=== PATIENT | female | born 1980 ===

== ENCOUNTER 2020-09-15 08:00 | Outpatient (RCR) | payer BC, SELFPAY ==
--- NOTE | 2020-06-30 12:17 | PTOPEVAL ---
INITIAL PHYSICAL THERAPY EVALUATION and PLAN OF CARE Thank you for referring Fiona Cohen to [facility].? Fiona is scheduled to be seen for physical therapy? 2x/week for 4 weeks. Please review, sign, date and return this plan of care DIEGO. I agree with and certify that the following plan of care is medically necessary. Referring Physician Date Admitting Provider: Attending Provider: Livan Alejo, Referring Provider: *PT Outpatient Evaluation Start: 06/30/20 10:30 Freq: Status: Active Protocol: Document 06/30/20 10:30 SAVANA (Rec: 06/30/20 12:17 SAVANA [id number]) Therapy Assessment Status Assessment Status Assessment Status Evaluation Outpatient Past Medical History Past Medical History Source of Past Medical History Patient Respiratory History Hx Asthma Yes Gastrointestinal History Hx Gastroesophageal Reflux Disease Yes Hx Ulcer Yes Musculoskeletal History Hx Orthopedic Surgery Yes: L ankle ORIF 2002 Reproductive History Hx Other Reproductive Disorders Yes: polyp removed from uterus Evaluation Information Problem Diagnosis upper back pain Onset initiated last summer Subjective Information Last year gardening - L side Query Text:As Reported By Patient/ mid/lower back pain - since Family then had issues with L side - pelvis R shoulder blade - constant pain - increase in discomfort with cervical rotation to R Seeing chiropractor, getting massages - unable to relieve discomfort Has done rest, exercise - etc no consistent relief - does get some relief with electric stimulation Prolonged positioning - aggravates pain Sleeps - 3/4 prone - general sleeps okay - mornings - initially okay - but after 5 minutes will begin to feel the discomfort Does have cervical pillow and moist heat - does for relaxation - also has massager Constant headaches - did just receive new glasses -no change with headaches Prior Level of Function Activity Level (Last 3 Months) Occupation homemaker Hand Dominance Right Medications Home Meds (Include: OTC, RX, Vitamins, phentermine, pantoprazole sod, Herbal
--- NOTE | 2020-07-30 08:05 | PCPTNOTE ---
Patient called & cancelled scheduled appointment this date due to not having child life assistant.
--- NOTE | 2020-08-09 16:51 | PTOPEVAL ---
PHYSICAL THERAPY RE-EVALUATION AND UPDATED PLAN OF CARE Thank you for referring Fiona Cohen to [facility].?Fiona has been seen x 7 visits. She has made progress towards goals set - but has not fully met them. Recommending continuation of PT 2x/week for 4 weeks. Please review, sign, date and return this plan of care DIEGO. I agree with and certify that the following plan of care is medically necessary. Referring Physician Date Admitting Provider: Attending Provider: Livan Alejo, MD Referring Provider: Therapy Assessment Status Assessment Status Assessment Status Re-evaluation Hx Other Reproductive Disorders Yes: polyp removed from uterus Evaluation Information Problem Diagnosis R upper back pain, L lower back pain Subjective Information Fiona reports having increase Query Text:As Reported By Patient/ with L lateral thigh soreness Family after last treatment. Iced/ heat/stretched the areas - doing better today. Headaches - doing better ~ 80% - also started wearing mouth guard. R upper quadrant - soreness present - discomfort at end range R rotation, feels like able to hold shoulders back better. Tightness still present. L lower back - better - if gardening, bending over a lot - the discomfort/soreness is present during the activity and afterwards. But with usual resting - doesn't feel it as much. Pain Assessment Timing of Pain Assessment Timing of Pain Assessment Assessment Self Report Pain Assessment Left Lower Back Reported Pain Level 3 Pain Description Dull,Tightness Lowest Pain Intensity 2 Greatest Pain Intensity 7 Right Upper Back Reported Pain Level 6 Pain Description Sharp,Throbbing,Tightness Lowest Pain Intensity 4 Greatest Pain Intensity 8 Cervical and Lumbar ROM Cervical ROM Cervical Flexion (0-60) 55 Query Text:Active in Degrees Cervical Extension (0-70) 55 Query Text:Active in Degrees Cervical Lateral Flexion Right (0-50) 45 Query Text:Active in Degrees Cervical Lateral Flexion Left (0-50) 45 Query Text:Active in Degrees Cervical Rotation Right (0-90) 60 Query Text:Active in Degrees Cervical Rotation Left (0-90) 70 Query Text:Active in Degrees Cervical ROM Comments tenderness
--- NOTE | 2020-09-22 08:01 | PCPTNOTE ---
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
--- NOTE | 2020-10-04 09:30 | PCPTNOTE ---
PHYSICAL THERAPY DISCHARGE NOTE Admitting Provider: Attending Provider: Livan Alejo, Patient:Fiona Cohen Date of :1980 Fiona has not returned for any further treatments since 09/15/2020, therefore she will be discharged at this time. Fiona?s initial visit was on 06/30/2020 10:30 and she had a total of 14 visits. Fiona needed to cancel her re-evaluation appointment on 09/22/20 due to design studio consultant issues. She has not called to reschedule this appointment. The goals have been partially met. Fiona was independent with her HEP on a regular basis - so hopefully she is continuing to perform it. Thank you for referring Fiona to [facility]. Please review, sign, date and return this discharge summary DIEGO. I have been updated about Fiona's current status and I agree with discharge from the above service at this time. Referring Physician Date
== END 2020-09-28 23:59 | disposition home or self-care (01) ==
LOC: ANHHIPT 08:00
PROVIDERS: PCP Internal Medicine; Visit Provider Internal Medicine
DX: M54.2 Cervicalgia (principal)
CPT/HCPCS: 97110; 97140; 97162